=== PATIENT | female | born 1945 | race Caucasian/White ===

== ENCOUNTER 2017-03-25 13:29 | Outpatient (CLI) | payer MEDICARE | END 2017-03-25 13:30 | disposition home or self-care (01) | DX: E11.9 Type 2 diabetes mellitus without complications (principal) ==

== ENCOUNTER 2017-07-15 09:31 | Outpatient (CLI) | payer MEDICARE ==
--- NOTE | 2017-07-15 11:14 | XRAY Report ---
FOUR VIEW BILATERAL KNEES: 07/15/2017 CLINICAL INDICATION: Osteoarthritis. COMPARISON: Left knee of 12/22/2008. FINDINGS: AP, lateral, and bilateral oblique views of the bilateral knees were obtained. Moderate osteoarthritis is again seen on the left, without significant interval change. Mild right kn ee osteoarthritis is present. No effusion is present on either side. Vascular calcifications are note d. There is no evidence of fracture or dislocation. IMPRESSION: MODERATE LEFT AND MILD RIGHT KNEE OSTEOARTHRITIS. NO SIGNIFICANT INTERVAL CHANGE IN THE APPEARANCE OF THE LEFT KNEE FROM 12/22/2008. JOB #: [id number] EXT JOB #:[id number]
== END 2017-07-15 09:32 | disposition home or self-care (01) ==
LOC: DI 09:31
PROVIDERS: ATTEND Registered Nurse
DX: M17.0 Bilateral primary osteoarthritis of knee (principal)

== ENCOUNTER 2018-05-02 08:14 | Outpatient (CLI) | payer MEDICARE | END 2018-05-02 08:15 | disposition home or self-care (01) | LOC: DI 08:14 | PROVIDERS: ATTEND Registered Nurse | DX: R01.1 Cardiac murmur, unspecified (principal); I10 Essential (primary) hypertension; R06.00 Dyspnea, unspecified; I51.7 Cardiomegaly | CPT/HCPCS: 93306 ==

== ENCOUNTER 2018-07-24 11:30 | Outpatient (CLI) | payer MEDICARE | END 2018-07-24 11:31 | disposition EMS.NT | LOC: EMS 11:30 | PROVIDERS: ATTEND Surgery | DX: Z04.1 Encounter for examination and observation following transport accident (principal) ==

== ENCOUNTER 2019-03-26 13:02 | Outpatient (CLI) | payer MEDICARE | END 2019-03-26 13:03 | disposition home or self-care (01) | LOC: NS 13:02 | PROVIDERS: ATTEND Internal Medicine | DX: Z71.3 Dietary counseling and surveillance (principal); E11.9 Type 2 diabetes mellitus without complications; R63.4 Abnormal weight loss | CPT/HCPCS: 97802 ==

== ENCOUNTER 2019-07-24 08:58 | Outpatient (CLI) | payer MEDICARE ==
--- NOTE | 2019-07-26 01:52 | XRAY Report ---
Reason: PAIN IN LEFT KNEE Procedure Date: 07/24/2019 Accession Number: [id number] / [id number] Procedure: XRS - Knee 2 View LT CPT Code: FULL RESULT: EXAM: LEFT KNEE RADIOGRAPHY EXAM DATE: 07/24/2019 09:10 AM. CLINICAL HISTORY: PAIN IN LEFT KNEE. COMPARISON: KNEE 4 VIEW BILAT 07/15/2017 9:56 AM. TECHNIQUE: 2 views. FINDINGS: Bones: Normal. No fractures or bone lesions. Joints: Progression of osteoarthritis, with near complete collapse of the medial femorotibial joint space. Moderate effusion. Soft Tissues: Normal. No soft tissue swelling. IMPRESSION: Progression of osteoarthritis. No evidence of fracture. RADIA
== END 2019-07-24 08:59 | disposition home or self-care (01) ==
LOC: DI.S 08:58
PROVIDERS: ATTEND Physician Assistant
DX: M17.12 Unilateral primary osteoarthritis, left knee (principal)

== ENCOUNTER 2021-05-19 07:39 | Outpatient (CLI) | payer MEDICARE ==
[2021-05-19 14:42] LABS: BASOPHILS % (AUTO) 0.6 %; EOSINOPHILS # (AUTO) 0.3 10^3/uL (0.0-0.7); EOSINOPHILS % (AUTO) 3.6 %; HCT - HEMATOCRIT 36.6 % (37.0-47.0); HGB - HEMOGLOBIN 11.4 g/dL (12.0-16.0); LYMPHOCYTES # (AUTO) 1.5 10^3/uL (1.5-3.5); LYMPHOCYTES % (AUTO) 21.6 %; MEAN CORPUSCULAR HEMOGLOBIN 30.2 pg (27.0-31.0); MEAN CORPUSCULAR HGB CONC 31.1 g/dL (32.0-36.0); MEAN CORPUSCULAR VOLUME 96.8 fL (81.0-99.0); MEAN PLATELET VOLUME 9.5 fL (7.9-10.8); MONOCYTES # (AUTO) 0.9 10^3/uL (0.0-1.0); MONOCYTES % (AUTO) 13.2 %; NEUTROPHILS # (AUTO) 4.3 10^3/uL (1.5-6.6); NEUTROPHILS % (AUTO) 60.7 %; PLT - PLATELET COUNT 206 10^3/uL (130-450); RED BLOOD COUNT 3.78 10^6/uL (4.20-5.40); RED CELL DISTRIBUTION WIDTH 12.1 % (12.0-15.0); WHITE BLOOD COUNT 7.1 x10^3/uL (4.8-10.8)
[2021-05-19 16:01] LABS: ALBUMIN 4.2 g/dL (3.2-5.5); ALBUMIN/GLOBULIN RATIO 1.4 (1.0-2.2); BILIRUBIN,TOTAL 0.5 mg/dL (0.2-1.0); CALCIUM 9.3 mg/dL (8.5-10.3); CREATININE 0.7 mg/dL (0.4-1.0); POTASSIUM 4.2 mmol/L (3.5-5.0); TOTAL PROTEIN 7.3 g/dL (6.7-8.2)
[2021-05-19 16:10] LABS: CHOL/HDL RATIO 2.8 (<4.4); CHOLESTEROL 130 mg/dL; HDL CHOLESTEROL 47 mg/dL; LDL CHOLESTEROL,CALCULATED 68 mg/dL; LDL/HDL RATIO 1.4 (<4.4); TRIGLYCERIDES 77 mg/dL; VLDL CHOLESTEROL 15 mg/dL
[2021-05-19 16:26] LABS: FOLATE 19.3 ng/mL (5.90 - >24.8)
[2021-05-19 18:14] LABS: ESTIMATED AVERAGE GLUCOSE 128 mg/dL (70-100); HEMOGLOBIN A1c% 6.1 % (4.27-6.07)
== END 2021-05-19 07:40 | disposition home or self-care (01) ==
LOC: LAB.S 07:39
PROVIDERS: ATTEND Registered Nurse
DX: I25.10 Atherosclerotic heart disease of native coronary artery without angina pectoris (principal); Z90.49 Acquired absence of other specified parts of digestive tract; E11.9 Type 2 diabetes mellitus without complications
CPT/HCPCS: 36415; 80053; 80061; 82306; 82607; 82728; 82746; 83036; 83540; 83721; 83735; 84466; 85025

== ENCOUNTER 2022-02-15 09:56 | Outpatient (CLI) | payer MEDICARE ==
[2022-02-15 10:53] LABS: BASOPHILS # (AUTO) 0.1 10^3/uL (0.0-0.1); BASOPHILS % (AUTO) 0.8 %; EOSINOPHILS # (AUTO) 0.4 10^3/uL (0.0-0.7); EOSINOPHILS % (AUTO) 6.1 %; HCT - HEMATOCRIT 36.5 % (37.0-47.0); HGB - HEMOGLOBIN 12.3 g/dL (12.0-16.0); LYMPHOCYTES # (AUTO) 1.6 10^3/uL (1.5-3.5); LYMPHOCYTES % (AUTO) 25.9 %; MEAN CORPUSCULAR HEMOGLOBIN 31.9 pg (27.0-31.0); MEAN CORPUSCULAR HGB CONC 33.7 g/dL (32.0-36.0); MEAN CORPUSCULAR VOLUME 94.8 fL (81.0-99.0); MEAN PLATELET VOLUME 9.1 fL (7.9-10.8); MONOCYTES # (AUTO) 0.6 10^3/uL (0.0-1.0); MONOCYTES % (AUTO) 10.5 %; NEUTROPHILS # (AUTO) 3.5 10^3/uL (1.5-6.6); NEUTROPHILS % (AUTO) 56.5 %; PLT - PLATELET COUNT 174 10^3/uL (130-450); RED BLOOD COUNT 3.85 10^6/uL (4.20-5.40); RED CELL DISTRIBUTION WIDTH 12.5 % (12.0-15.0); WHITE BLOOD COUNT 6.1 x10^3/uL (4.8-10.8)
[2022-02-15 11:03] LABS: CALCIUM 9.5 mg/dL (8.5-10.3); CREATININE 0.7 mg/dL (0.4-1.0); POTASSIUM 4.1 mmol/L (3.5-5.0)
--- NOTE | 2022-02-15 13:04 | DEXA Report ---
PROCEDURE: Dexa Spine and/or Hip INDICATIONS: POST MENOPAUSAL STATE TECHNIQUE: Dual energy x-ray absorptiometry (DXA) was performed on a Patient [employer] System. Regions measur ed are the AP Spine, femoral neck, and if needed forearm. COMPARISON: None. FINDINGS: Lumbar Spine: Bone Mineral Density 1.193 g/cm/cm,T score 1.5, normal. Left Hip: Bone Mineral Density 0.749 g/cm/cm,T score -2.1, osteopenic Left Femoral Neck: Bone Mineral Density 0.792 g/cm/cm, T score -1.8, osteopenic (T score greater or equal to -1.0: NORMAL) (T score from -1.1 to -2.4: OSTEOPENIA) (T score less than or equal to -2.5 to: OSTEOPOROSIS) Impression: Based on WHO criteria, the patient is osteopenic. Patients with diagnosis of osteoporosis or osteopenia should have regular bone mineral density assess ment. For those eligible for Medicare, routine testing is allowed once every 2 years. Testing frequ ency can be increased for patients who have rapidly progressing disease or for those who are receivin g medical therapy to restore bone mass. Reviewed by: Kitty Palomino MD on 02/15/2022 1:02 PM PDT Approved by: Kitty Palomino MD on 02/15/2022 1:02 PM PDT Station ID: [id number]
[2022-02-15 13:07] LABS: ESTIMATED AVERAGE GLUCOSE 128 mg/dL (70-100); HEMOGLOBIN A1c% 6.1 % (4.27-6.07)
[2022-02-16 13:36] LABS: HEPATITIS C ANTIBODY NON-REACTIVE (NON-REACTIVE)
== END 2022-02-15 09:57 | disposition home or self-care (01) ==
LOC: DI 09:56
PROVIDERS: ATTEND Registered Nurse
DX: Z78.0 Asymptomatic menopausal state (principal); M85.89 Other specified disorders of bone density and structure, multiple sites; E78.1 Pure hyperglyceridemia; Z11.59 Encounter for screening for other viral diseases; D50.9 Iron deficiency anemia, unspecified; E11.9 Type 2 diabetes mellitus without complications
CPT/HCPCS: 36415; 80048; 82728; 83036; 83540; 84466; 85025; 86803

== ENCOUNTER 2022-10-04 14:40 | Outpatient (CLI) | payer MEDICARE ==
--- NOTE | 2022-10-05 08:46 | XRAY Report ---
PROCEDURE: Hip w/Pelvis 2-3V LT INDICATIONS: XRAY TECHNIQUE: AP pelvis with lateral view(s) of the left hip(s). COMPARISON: None. FINDINGS: Bones: The subcapital left hip femoral neck appears foreshortened. There is minimal regularity and sc lerosis. No hip dislocation. Pelvic ring appears intact. There is acetabular roof sclerosis and oste ophytosis. No suspicious bony lesions. Soft tissues: The visualized bowel gas pattern is normal. No suspicious soft tissue calcifications. Arterial vascular calcifications. IMPRESSION: Concern for nondisplaced subcapital left femoral neck fracture. CT bony pelvis is recommended for further evaluation. Results were communicated to Darby Zhu at 10/05/2022 8:44 AM PST. Reviewed by: Ken Atkins MD on 10/05/2022 8:44 AM PST Approved by: Ken Atkins MD on 10/05/2022 8:44 AM PST Station ID: [id number]
== END 2022-10-04 14:41 | disposition home or self-care (01) ==
LOC: DI.S 14:40
PROVIDERS: ATTEND Physician Assistant
DX: M25.552 Pain in left hip (principal)

== ENCOUNTER 2022-10-08 14:59 | Outpatient (CLI) | payer MEDICARE ==
--- NOTE | 2022-10-08 17:14 | CT Report ---
PROCEDURE: LOWER EXTREMITY WO - LT INDICATIONS: PAIN LEFT HIP TECHNIQUE: Noncontrast 3-mm axial sections acquired from the distal tibial shaft to the talar dome, with coronal and sagittal reformats. For radiation dose reduction, the following was used: automated exposure c ontrol, adjustment of mA and/or kV according to patient size. COMPARISON: None. FINDINGS: Image quality: Excellent. Bones: Subcapital fracture, nondisplaced of the femoral neck. Femoral acetabular alignment is mainta ined. Scattered degenerative changes elsewhere. Soft tissues: Scattered atherosclerosis. No significant intrapelvic findings on this limited CT. Impression: Nondisplaced left hip subcapital fracture. Reviewed by: Fede Palacio MD on 10/08/2022 5:12 PM PST Approved by: Fede Palacio MD on 10/08/2022 5:12 PM PST Station ID: [id number]
== END 2022-10-08 15:00 | disposition home or self-care (01) ==
LOC: DI 14:59
PROVIDERS: ATTEND Physician Assistant
DX: S72.012A Unspecified intracapsular fracture of left femur, initial encounter for closed fracture (principal)

== ENCOUNTER 2022-12-31 10:08 | Outpatient (CLI) | payer MEDICARE ==
--- NOTE | 2022-12-31 15:21 | XRAY Report ---
PROCEDURE: Hand 3 View LT INDICATIONS: LEFT HAND PAIN TECHNIQUE: 3 views of the hand(s) acquired. COMPARISON: None FINDINGS: Bones: Generalized decreased osseous mineralization present. There is a cortical defect involving the base of the fourth distal phalanx. Advanced to small vessel obscuring vascular calcification noted. No radiopaque foreign bodies. Soft tissues: No suspicious soft tissue calcifications. IMPRESSION: 1. Nondisplaced fracture, base of the fourth distal phalanx. 2. Generalized small vessel calcific atherosclerosis Reviewed by: Qamar Morales MD on 12/31/2022 2:20 PM AKST Approved by: Qamar Morales MD on 12/31/2022 2:20 PM AKST Station ID: [id number]
== END 2022-12-31 10:10 | disposition home or self-care (01) ==
LOC: DI.S 10:08
PROVIDERS: ATTEND Registered Nurse
DX: S62.665A Nondisplaced fracture of distal phalanx of left ring finger, initial encounter for closed fracture (principal); I70.208 Unspecified atherosclerosis of native arteries of extremities, other extremity

== ENCOUNTER 2023-03-19 08:00 | Outpatient (CLI) | payer MEDICARE ==
[2023-03-20 19:45] LABS: BACTERIAL VAGINOSIS DNA NEGATIVE (NEGATIVE); CANDIDA GLABRATA DNA POSITIVE (NEGATIVE); CANDIDA GROUP DNA NEGATIVE (NEGATIVE); CANDIDA KRUSEI DNA NEGATIVE (NEGATIVE); TRICHOMONAS VAGINALIS DNA NEGATIVE (NEGATIVE)
== END 2023-03-19 23:59 | disposition home or self-care (01) ==
LOC: LAB.S 08:00
PROVIDERS: ATTEND Physician Assistant
DX: N76.0 Acute vaginitis (principal)
CPT/HCPCS: 81514